=== PATIENT | female | born 1985 | race Two or more races ===

== ENCOUNTER 2019-03-24 23:38 | Emergency (ER) | payer MEDICAID ==
[~2019-03-24] VITALS: Ht 157.5 cm; Wt 83.0 kg
[2019-03-25 00:32] VITALS: BP 124/83
== END 2019-03-25 02:30 | disposition left against medical advice (07) ==
LOC: ER 23:45
DX: R05 Cough (principal); Z53.21 Procedure and treatment not carried out due to patient leaving prior to being seen by health care provider
CPT/HCPCS: 71045; 81025